=== PATIENT | male | born 1965 | race African-American/Black ===

== ENCOUNTER 2017-06-23 17:15 | Inpatient (IN) | payer OTHER ==
[~2017-06-23] VITALS: Ht 175.3 cm; Wt 70.3 kg
--- NOTE | ~2017-06-23 | PN ---
Unit #: [id number] #: [id number] Patient: RICARDO RIVAS [id number] [facility] [address] [place] [address] [id number] I MR#: [id number] NAME: RICARDO RIVAS ROOM: P177 Age: 51 Sex: M Admission Date: 06/23/2017 : 1965 Attending Physician: Donna Wayne M.D. Admitting Physician: Donna Wayne M.D. Primary Care Physician: Taylor Doctor Not In System [facility] NOTES DATE OF SERVICE: 06/26/2017 SUBJECTIVE Mr. Rivas is a 51-year-old, male, who was seen today and chart was reviewed, and the case was discussed with the staff. He reports persistent depression, anxiety, feelings of hopelessness and suicidal ideations, sleep disturbance and has been very seclusive to himself. Meanwhile, he has been cooperative with treatment recommendation and has been taking medications and tolerating them fairly well with no reported side effects. MENTAL STATUS EXAMINATION Middle-aged male, who was casually dressed with fair personal hygiene, appears to be in no acute distress or discomfort. He was awake and alert on interaction with intact orientation. His mood was anxious with a congruent affect. His speech was slow and goal directed. He denies suicidal or homicidal ideation and also denies any auditory or visual hallucinations. His insight and judgment remain slightly impaired. TREATMENT PLAN 1. We will continue his current medications and treatment protocol. We will monitor his response to medications and make further adjustments as needed. 2. We will continue to follow up. Dictated by... Savana Shepherd/george TD: 06/26/2017 08:05 JOB #: [id number] Unit #: [id number] #: [id number] Patient: RICARDO RIVAS [facility] NOTES Page 1 of 1 X Donna Wayne MD PROGRESS NOTE
--- NOTE | ~2017-06-23 | PN ---
Unit #: [id number] #: [id number] Patient: RICARDO RIVAS [id number] [facility] [address] [place] [address] [id number] I MR#: [id number] NAME: RICARDO RIVAS ROOM: P177 Age: 51 Sex: M Admission Date: 06/23/2017 : 1965 Attending Physician: Donna Wayne M.D. Admitting Physician: Donna Wayne M.D. Primary Care Physician: Taylor Doctor Not In System [facility] PROGRESS NOTES DATE June 27, 2017 DISCUSSION Mr. Rivas is a 51-year-old male, who was seen today and chart was reviewed and the case was discussed with the staff. He has been anxious, withdrawn, depressed, and rather seclusive to himself. Meanwhile, he has been cooperative with the treatment recommendations and he has been taking the medications and tolerating them fairly well with no reported side effects. MENTAL STATUS EXAMINATION Middle-aged male, who was casually dressed with fair personal hygiene and appears to be in no acute distress or discomfort. He was awake and alert on interaction with intact orientation. His mood is anxious with a congruent affect. His speech is slow and goal-directed. He reports having suicidal ideations but denies any homicidal ideations, and also denies any auditory or visual hallucinations. His insight and judgment remain slightly impaired. TREATMENT PLAN 1. We will continue him on his current medications and treatment protocol, and will monitor his response to the medications, and make further adjustments as needed. 2. We will continue to followup. Dictated by... Savana Shepherd/pao TD: 06/27/2017 12:46 JOB #: [id number] Unit #: [id number] #: [id number] Patient: RICARDO RIVAS [facility] NOTES Page 1 of 1 X Donna Wayne MD PROGRESS NOTE
--- NOTE | ~2017-06-23 | PN ---
Unit #: [id number] #: [id number] Patient: RICARDO RIVAS [id number] [facility] [address] [place] [address] [id number] I MR#: [id number] NAME: RICARDO RIVAS ROOM: P177 Age: 51 Sex: M Admission Date: 06/23/2017 : 1965 Attending Physician: Donna Wayne M.D. Admitting Physician: Donna Wayne M.D. Primary Care Physician: Taylor Doctor Not In System [facility] PROGRESS NOTES DATE OF SERVICE 06/28/2017 DISCUSSION Mr. Rivas is a 51-year-old male who was seen today. Chart was reviewed and case was discussed with the staff. He has been anxious, withdrawn, depressed, and rather seclusive to himself though he also informed me that he is trying to get into [facility] and has been told that he will have a bed for him day after tomorrow. Meanwhile, he has been taking the medications and tolerating them fairly well with no reported side effects. MENTAL STATUS EXAMINATION Middle-aged male who is casually dressed with fair personal hygiene, appears to be in no acute distress or discomfort. He was awake and alert on interaction with intact orientation. His mood is anxious with a congruent affect. Speech is slow and goal-directed. He denies any suicidal or homicidal ideations and also denies any auditory or visual hallucinations. His insight and judgment remain slightly impaired. TREATMENT PLAN 1. We will continue him on his current medications and treatment protocol. We will monitor his response to the medications and make further adjustments as needed. 2. We will continue to follow up. Dictated by... Savana Shepherd/levar TD: 06/28/2017 11:16 JOB #: [id number] Unit #: [id number] #: [id number] Patient: RICARDO RIVAS PROGRESS NOTES Page 1 of 1 X Donna Wayne MD PROGRESS NOTE
--- NOTE | ~2017-06-23 | DS ---
Unit #: [id number] #: [id number] Patient: RICARDO RIVAS [id number] [place] [address] [id number] I MR#: [id number] NAME: RICARDO RIVAS ROOM: P177 Age: 51 Sex: M Admission Date: 06/23/2017 : 1965 Discharge Date: 06/30/2017 Attending Physician: Donna Wayne M.D. Primary Care Physician: Generic Doctor Not In System DISCHARGE SUMMARY IDENTIFICATION DATA Mr. Rivas is a 51-year-old male who is a resident of [place], [place], and is known to me from previous encounter and was self-referred to the hospital on voluntary basis. DISCHARGE DIAGNOSES PSYCHIATRIC: Major depressive disorder, recurrent, moderate, with psychosis. Cocaine dependence, moderate. MEDICAL: None. STRESSORS: Moderate psychosocial stressors. HISTORY OF PRESENT ILLNESS Same as in initial psychiatric evaluation. PAST PSYCHIATRIC HISTORY Same as in initial psychiatric evaluation. PAST MEDICAL HISTORY Same as in initial psychiatric evaluation. HOSPITAL COURSE The patient was admitted to the adult psychiatric and chemical dependence unit at [facility] and was oriented to the hospital environment. Routine p.r.n. medications were initiated, and he was started back on his home medications, and medications were adjusted. He was seen to be exhibiting some significant depressive symptoms, and therefore Wellbutrin and Seroquel were initiated, and he was encouraged to participate in therapy groups. He was taking the medications regularly and was tolerating them fairly well and was able to show a decent therapeutic response with improvement in depression and anxiety and was denying any suicidal ideations, intent, or plan and had a plan to go to [facility] after being discharged from the hospital and continue further treatment on outpatient basis. As such, it was decided that he will be kept on his current medications and will be discharged to [facility] with ongoing outpatient psychiatric treatment. DISCHARGE MEDICATIONS 1. Wellbutrin XL 150 mg in the morning for depression. 2. Seroquel 200 mg at bedtime for depression. CONDITION AT DISCHARGE Stable. Unit #: [id number] #: [id number] Patient: RICARDO RIVAS PROGNOSIS Fair. Dictated by... Savana Shepherd/levar TD: 06/30/2017 07:42 JOB #: [id number] DISCHARGE SUMMARY Page 1 of 1 X Donna Wayne MD DISCHARGE SUMMARY
--- NOTE | ~2017-06-23 | PN ---
Unit #: [id number] #: [id number] Patient: RICARDO RIVAS [id number] [facility] [address] [place] [address] [id number] I MR#: [id number] NAME: RICARDO RIVAS ROOM: P177 Age: 51 Sex: M Admission Date: 06/23/2017 : 1965 Attending Physician: Donna Wayne M.D. Admitting Physician: Donna Wayne M.D. Primary Care Physician: Taylor Doctor Not In System [facility] PROGRESS NOTES DATE OF SERVICE: 06/25/2017 SUBJECTIVE Mr. Rivas is a 51-year-old white male with substance abuse and mood disorder, who was seen today and chart was reviewed and case was discussed with the staff. He has been anxious, withdrawn, depressed and rather seclusive to himself. Meanwhile, he has been taking medications and tolerating them fairly well with no reported side effects. MENTAL STATUS EXAMINATION Middle-aged white male, who was casually dressed with fair personal hygiene, appears to be in no acute distress or discomfort. He was awake and alert on interaction with intact orientation. His mood was anxious with a congruent affect. His speech was slow and goal directed. He denies suicidal or homicidal ideation. His insight and judgment remain slightly impaired. TREATMENT PLAN 1. We will continue his current medications and treatment protocol. We will monitor his response to medications and make further adjustments as needed. 2. We will continue to follow up. Dictated by... Savana Shepherd/george TD: 06/27/2017 00:34 JOB #: [id number] Unit #: [id number] #: [id number] Patient: RICARDO RIVAS [facility] NOTES Page 1 of 1 X Donna Wayne MD PROGRESS NOTE
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
--- NOTE | ~2017-06-23 | PN ---
Unit #: [id number] #: [id number] Patient: RICARDO RIVAS [id number] [facility] [address] [place] [address] [id number] I MR#: [id number] NAME: RICARDO RIVAS ROOM: P177 Age: 51 Sex: M Admission Date: 06/23/2017 : 1965 Attending Physician: Donna Wayne M.D. Admitting Physician: Donna Wayne M.D. Primary Care Physician: Taylor Doctor Not In System [facility] PROGRESS NOTES DATE OF SERVICE 06/29/2017 DISCUSSION Mr. Rivas is a 51-year-old male who was seen today. Chart was reviewed and case was discussed with the staff. He has been anxious, withdrawn, and rather seclusive to himself. Meanwhile, he has been cooperative with treatment recommendations and has been taking the medications and tolerating them fairly well with no reported side effects. MENTAL STATUS EXAMINATION Middle-aged male who is casually dressed with fair personal hygiene, appears to be in no acute distress or discomfort. He was awake and alert on interaction with intact orientation. His mood is anxious with congruent affect. He denies any suicidal or homicidal ideations and also denies any auditory or visual hallucinations. His insight and judgment remain slightly impaired. TREATMENT PLAN 1. We will continue him on his current medications and treatment protocol. We will monitor his response to the medications and make further adjustments as needed. 2. We will continue to follow up. Dictated by... Savana Shepherd/levar TD: 06/29/2017 08:47 JOB #: [id number] Unit #: [id number] #: [id number] Patient: RICARDO RIVAS [facility] PROGRESS NOTES Page 1 of 1 X Donna Wayne MD PROGRESS NOTE
--- NOTE | ~2017-06-23 | HP ---
Unit #: [id number] #: [id number] Patient: RICARDO RIVAS [id number] [place] [address] [id number] I MR#: [id number] NAME: RICARDO RIVAS ROOM: P177 Age: 51 Sex: M Admission Date: 06/23/2017 : 1965 Attending Physician: Donna Wayne M.D. Admitting Physician: Donna Wayne M.D. Primary Care Physician: Generic Doctor Not In System HISTORY AND PHYSICAL HISTORY OF PRESENT ILLNESS The patient is a 51-year-old male admitted to [facility] on 06/23/2017 for crack cocaine abuse and for hearing voices. PAST MEDICAL HISTORY Patient denies. PAST SURGICAL HISTORY Patient denies. ALLERGIES No known drug allergies. SOCIAL HISTORY He is unemployed. He smokes 1/2 pack of cigarettes daily and uses crack on a daily basis. FAMILY HISTORY Noncontributory. REVIEW OF SYSTEMS CONSTITUTIONAL: No fever or chills. HEENT: Denies any sore throat, ear pain or runny nose. CARDIOVASCULAR: Denies chest pain, irregular heart rhythm or palpitations. CHEST: Denies shortness of breath or cough. No hemoptysis. GASTROINTESTINAL: Denies nausea, vomiting, diarrhea or chronic constipation. ENDOCRINE: Denies history of increased thirst or urination. No recent significant weight loss or gain. GENITOURINARY: Denies dysuria, frequency, or hematuria. SKIN: Denies any rashes. HEMATOLOGIC: Denies history of increased bleeding or bruising. MUSCULOSKELETAL: Denies any hot, swollen joints. No generalized muscle pain. NEUROLOGIC: Denies problems with vision or speech. No frequent, severe headaches. No numbness, tingling or weakness in any extremities. Denies loss of bladder or bowel control. CURRENT MEDICATIONS Wellbutrin. PHYSICAL EXAMINATION GENERAL: He is awake, alert, oriented, in no acute distress. Unit #: [id number] #: [id number] Patient: RICARDO RIVAS VITAL SIGNS: Temperature 98.2, heart rate 78, respirations 16, blood pressure 130/78. HEIGHT: 5 feet 9. WEIGHT: 155 pounds. SKIN: Warm and dry without rash or lesion. HEENT: Normocephalic. TMs not viewed. Oral and nasal passages clear. Conjunctivae clear. PERRLA. EOMs intact. NECK: Supple without lymphadenopathy or thyromegaly. HEART: Regular rate and rhythm without murmur. LUNGS: Clear. ABDOMEN: Soft, nontender. : Not done. EXTREMITIES: No evidence of cyanosis, clubbing or edema. Moves all without focal deficit. NEUROLOGICAL: Grossly within normal limits. Cranial Nerves: II: Visual vasquez are intact. III, IV AND : Extraocular movements are intact. Pupils are equal, round and reactive to light. V: Facial sensation is grossly normal. VII: Facial movements and expression are normal. VIII: Auditory acuity grossly intact. IX, X: Uvula is midline. Phonation is normal. XI: Patient shrugs shoulders and turns head normally. XII: Tongue protrudes in the midline. Sensory and Motor Function: Sensory and motor sensation is grossly normal. Motor: moves all extremities well. Coordination: Gait is normal. Deep Tendon Reflexes: Intact. IMPRESSION 1. Psychiatric admission. 2. Crack cocaine abuse. RECOMMENDATIONS PSYCHIATRIC: Per psychiatrist. MEDICAL: No contraindication to participate in facility's activities. MEDICAL PROGNOSIS Good. MEDICAL CONDITION Stable. Dictated by... Nela Ayers/jerir TD: 06/24/2017 14:25 JOB #: [id number] Unit #: [id number] #: [id number] Patient: RICARDO RIVAS HISTORY AND PHYSICAL Page 1 of 1 X GURPREET BORREGO APRN HISTORY AND PHYSICAL
[2017-06-24 10:57] LABS: BASOPHIL% 1.3 % (0-2.5); EOSINOPHIL# 0.2 X10e3 (0-0.7); EOSINOPHIL% 4.5 % (0.0-7.0); HEMATOCRIT 45.5 % (38.0-50.0); HEMOGLOBIN 15.4 gm/dL (13.0-16.0); LYMPHOCYTE# 1.4 X10e3 (1.0-3.5); LYMPHOCYTE% 37.4 % (17.0-45.0); MEAN CELL VOLUME 91.1 FL (83-96); MEAN CORPUSCULAR HEMOGLOBIN 30.8 PG (28-34); MEAN CORPUSCULAR HGB CONC 33.8 g/dL (30-36); MEAN PLATELET VOLUME 7.6 FL (6.5-11.5); MONOCYTE# 0.3 X10e3 (0-1.0); MONOCYTE% 6.8 % (3.0-12.0); NEUTROPHIL# 1.9 X10e3 (1.5-7.1); PLATELET COUNT 203 X10e3 (140-420); RED CELL DISTRIBUTION WIDTH 13.9 % (11.0-15.5); WHITE BLOOD COUNT 3.8 X10e3 (4.0-10.5)
[2017-06-24 11:03] LABS: DIFF IND NO
[2017-06-24 11:29] LABS: ALBUMIN SERUM 3.7 g/dL (3.5-5.0); BILIRUBIN,TOTAL 0.4 mg/dL (0.2-2.0); BUN/CREATININE RATIO 11.81; CALCIUM SERUM 9.1 mg/dL (8.4-10.2); CREATININE SERUM 1.1 mg/dL (0.6-1.4); GLOM FILT RATE Estimated 90.9 mL/min (>60); POTASSIUM 4.6 mmol/L (3.5-5.1)
== END 2017-06-30 10:00 | DRG 885 ==
LOC: P1E 19:58
PROVIDERS: Psychiatry & Neurology Psychiatry
DX: F33.1 Major depressive disorder, recurrent, moderate (principal); F14.20 Cocaine dependence, uncomplicated; F29 Unspecified psychosis not due to a substance or known physiological condition; Z56.0 Unemployment, unspecified
CPT/HCPCS: 80053; 85025